=== PATIENT | male | born 2000 | race Caucasian/White ===

== ENCOUNTER 2024-11-28 20:57 | Inpatient (IN) | payer BC, SELFPAY ==
[2024-11-28] VITALS (8 sets, daily range): BP systolic 102–147; BP diastolic 73–88; BMI 23.5; BMI 20.9
[2024-11-28] MEDS: OMNIPAQUE 50 ML PO (13:58)
[2024-11-28 14:02] LABS: % Basophils 1.3 % (0-2); % Eosinophils 0.2 % (0-6); % Immature Granulocytes 2.4 % (0-0.5); % Lymphocytes 19.2 % (20.5-51.1); % Monocytes 14.2 % (1.7-9.3); % Neutrophils 62.7 % (42.2-75.2); Absolute Basophils 0.1 10^3/uL (0-0.2); Absolute Immature Granulocytes 0.1 10^3/uL (0-0.05); Absolute Lymphocytes 1.1 10^3/uL (1.2-3.4); Absolute Monocytes 0.8 10^3/uL (0.1-0.6); Absolute Neutrophils 3.7 10^3/uL (1.4-6.5); Hematocrit 35.6 % (39.0-52.0); Mean Corp Hgb Conc. 33.7 g/dL (33.0-37.0); Mean Corpuscular Hgb 31.5 pg (27.0-31.0); Mean Corpuscular Volume 93.4 fL (80.0-94.0); Mean Platelet Volume 10.9 fL (7.4-10.4); Nucleated Red Blood Cells % 2.5 % (-); Platelet Count 122 10^3/uL (130-400); Red Blood Cell Count 3.81 10^6/uL (4.70-6.10); Red Cell Dist. Width 17.3 % (11.5-14.5); White Blood Cell Count 5.9 10^3/uL (4.8-10.8)
[2024-11-28 14:09] LABS: INR 1.16; PT 15.1 Sec (11.4-14.6)
[2024-11-28 14:19] LABS: ALT (SGPT) 109 U/L (0-50); AST (SGOT) 634 U/L (17-59); Albumin 3.7 g/dl (3.5-5.0); Alkaline Phosphatase 225 U/L (38-126); Blood Urea Nitrogen 5 mg/dl (9-20); Calcium 8.3 mg/dl (8.4-10.2); Carbon Dioxide 28 mmol/L (22-30); Chloride 87 mmol/L (98-107); Glucose 116 mg/dl (70-99); Lipase 347 U/L (23-300); Potassium 2.8 mmol/L (3.5-5.1); Sodium 130 mmol/L (135-145); Total Protein 7.2 g/dl (6.3-8.2); eGFR > 60.00
--- NOTE | 2024-11-28 14:59 | ED.GENMED ---
History of Present Illness
<Tika Crotf PA-C - Last Filed: 11/28/24 18:43>
General
Chief Complaint: Abnormal Lab Value
Source: patient and family (mother at bedside)
Exam Limitations: none
Time Seen by Provider: 11/28/24 14:32
Nursing documentation reviewed up to this point in time: agreed with
History of Present Illness
History of Present Illness:
Patient is a 24 year old male presenting to the emergency department for evaluation of acute onset jaundice. Patient states about 5 days ago he noticed yellowing of his eyes and skin. He was seen by primary care physician this morning in [facility]
who referred him to the emergency department for further evaluation. Patient denies any abdominal pain although does report a 'fullness 'sensation in his upper abdomen over the past few days. Patient denies any chest pain or shortness of breath.
No fevers or chills. No urinary symptoms.
Of note�patient does report drinking about 5 drinks per day over the past year although recently tried to trim back last week. Patient states he has been dealing with a lot of anxiety over the past year and recently started new job. He does report
much lower appetite over the past few weeks which he thinks is also secondary to anxiety.
No history of liver disease. No recent travel.
Review of Systems
<Tika Croft PA-C - Last Filed: 11/28/24 18:43>
Review of Systems
Allergies reviewed?: Yes
All Other Systems: ROS reviewed and negative except as documented in HPI and ROS
Phy Exam
<Tika Croft PA-C - Last Filed: 11/28/24 18:43>
Physical Exam
Physical Exam:
Vitals: Hypertensive, otherwise vital signs stable. Afebrile
General: Patient is in no apparent distress.
Skin: Jaundice. Warm and dry, no rashes or lesions
Head: Normocephalic, atraumatic
Eyes: Scleral icterus bilaterally. EOMs intact. No nystagmus.
Throat: Protecting airway
Neck: Normal ROM, no cervical spine tenderness, no meningismus
Cardiac: Regular rate and rhythm, no murmurs.
Pulm: Normal respiratory effort, no wheezes, rales, rhonchi heard on exam.
Abdomen: Abdomen soft. Palpable hepatomegaly. Mild right upper quadrant tenderness. No rebound tenderness or guarding.
Extremities: No evidence of cyanosis or edema. Palpable distal pulses bilaterally.
Neuro: AAOx3. Grossly intact.
Psychiatric: Normal affect.
Course
<Tika Croft PA-C - Last Filed: 11/28/24 18:43>
Orders/Labs/Results
Orders:
Orders
11/28/24 13:45
Acetaminophen Urgent
Comment: ADD ON
Complete Blood Count/With Diff Urgent
Comprehensive Metabolic Panel Urgent
Direct Bilirubin Urgent
Comment: ADD ON
Lipase Urgent
Magnesium Urgent
Comment: ADD ON
Monotest Urgent
Comment: ADD ON
Prothrombin Time Urgent
11/28/24 13:55
CT Abd/pel W Iv And Oral Contr Urgent
Comment:
Reason For Exam: painless jaundice
Iohexol [Omnipaque] See Protocol PO NOW STA
11/28/24 15:00
Add On- LAB Urgent
Tests Added?: direct bili, magnesium, tylenol
0.9% Sodium Chloride 1000 ml [Nss] 1,000 ml IV BOLUS
Potassium Chloride [KCl] 40 meq PO NOW STA
11/28/24 15:14
Potassium Chloride [KCl] 40 meq 0.9% Sodium Chloride 250 ml [Nss] 250 ml IV NOW
11/28/24 15:17
EKG [Electrocardiogram (*1)] Urgent
Reason for Study: Other
Other Reason for Exam: low K
11/28/24 15:18
EKG- Treatment ONCE
11/28/24 15:33
Thiamine Injection 100 mg IV NOW STA
11/28/24 15:45
GASTROINTESTINAL CONSULT Urgent
Consulting Provider: Lokesh Villa
Was physician already notified: Yes
11/28/24 16:06
FOLic ACID [Folvite] 1 mg 0.9% Sodium Chloride 50 ml [Nss] 50 ml IV NOW
11/28/24 16:09
Hepatitis A IgM Antibody Urgent
Hepatitis B Core Ab, IgM Urgent
Hepatitis B Surface Antibody Urgent
Hepatitis B Surface Antigen Urgent
Hepatitis C Antibody Urgent
11/28/24 16:21
Magnesium Sulfate 2 Gram/50 ml [Magnesium Sulfate] 2 gram in 50 ml IV NOW
11/28/24 16:24
Add On- LAB Urgent
Tests Added?: monospot
11/28/24 17:08
Urinalysis Reflex To Culture Urgent
Date Specimen was Collected: 11/28/24
Time Specimen was Collected: 17:01
Abnormal Lab Results
11/28/24 11/28/24
13:45 17:08
RBC 3.81 L 10^6/uL
(4.70-6.10)
Hgb 12.0 L g/dL
(13.0-18.0)
Hct 35.6 L %
(39.0-52.0)
MCH 31.5 H pg
(27.0-31.0)
RDW 17.3 H %
(11.5-14.5)
Plt Count 122 L 10^3/uL
(130-400)
MPV 10.9 H fL
(7.4-10.4)
Abs Immat Gran (auto) 0.1 H 10^3/uL
(0-0.05)
Absolute Lymphs (auto) 1.1 L 10^3/uL
(1.2-3.4)
Absolute Monos (auto) 0.8 H 10^3/uL
(0.1-0.6)
Immature Gran % 2.4 H %
(0-0.5)
Lymphocytes % 19.2 L %
(20.5-51.1)
Monocytes % 14.2 H %
(1.7-9.3)
PT 15.1 H Sec
(11.4-14.6)
Sodium 130 L mmol/L
(135-145)
Potassium 2.8 L mmol/L
(3.5-5.1)
Chloride 87 L mmol/L
(98-107)
BUN 5 L mg/dl
(9-20)
Creatinine 0.6 L mg/dL
(0.7-1.3)
Glucose 116 H mg/dl
(70-99)
Calcium 8.3 L mg/dl
(8.4-10.2)
Magnesium 1.1 L mg/dl
(1.6-2.3)
Total Bilirubin 17.0 H mg/dl
(0.2-1.3)
Direct Bilirubin 14.6 H mg/dl
(0.0-0.4)
AST 634 H* U/L
(17-59)
ALT 109 H U/L
(0-50)
Alkaline Phosphatase 225 H U/L
(38-126)
Lipase 347 H U/L
(23-300)
Urine Bilirubin 3+ A
(Negative)
Urine Urobilinogen 2+ A
(Neg - 1+)
Acetaminophen < 10 L ug/ml
(10-30)
11/28/24 13:45
11/28/24 13:45
Vital Signs
Initial and Last Documented VS:
Initial Vital Signs
Temp Pulse Resp BP Pulse Ox
98.5 F 115 17 147/73 98
11/28/24 13:34 11/28/24 13:34 11/28/24 13:34 11/28/24 13:34 11/28/24 13:34
Last Documented Vital Signs
Temp Pulse Resp BP Pulse Ox
98.5 F 103 20 114/86 96
11/28/24 13:34 11/28/24 18:30 11/28/24 16:15 11/28/24 18:00 11/28/24 18:30
<Mart Joiner MD - Last Filed: 11/28/24 15:29>
Orders/Labs/Results
Orders:
Orders
11/28/24 13:45
Acetaminophen Urgent
Comment: ADD ON
Complete Blood Count/With Diff Urgent
Comprehensive Metabolic Panel Urgent
Direct Bilirubin Urgent
Comment: ADD ON
Lipase Urgent
Magnesium Urgent
Comment: ADD ON
Monotest Urgent
Comment: ADD ON
Prothrombin Time Urgent
11/28/24 13:55
CT Abd/pel W Iv And Oral Contr Urgent
Comment:
Reason For Exam: painless jaundice
Iohexol [Omnipaque] See Protocol PO NOW STA
11/28/24 15:00
Add On- LAB Urgent
Tests Added?: direct bili, magnesium, tylenol
0.9% Sodium Chloride 1000 ml [Nss] 1,000 ml IV BOLUS
Potassium Chloride [KCl] 40 meq PO NOW STA
11/28/24 15:14
Potassium Chloride [KCl] 40 meq 0.9% Sodium Chloride 250 ml [Nss] 250 ml IV NOW
11/28/24 15:17
EKG [Electrocardiogram (*1)] Urgent
Reason for Study: Other
Other Reason for Exam: low K
11/28/24 15:18
EKG- Treatment ONCE
11/28/24 15:33
Thiamine Injection 100 mg IV NOW STA
11/28/24 15:45
GASTROINTESTINAL CONSULT Urgent
Consulting Provider: Lokesh Villa
Was physician already notified: Yes
11/28/24 16:06
FOLic ACID [Folvite] 1 mg 0.9% Sodium Chloride 50 ml [Nss] 50 ml IV NOW
11/28/24 16:09
Hepatitis A IgM Antibody Urgent
Hepatitis B Core Ab, IgM Urgent
Hepatitis B Surface Antibody Urgent
Hepatitis B Surface Antigen Urgent
Hepatitis C Antibody Urgent
11/28/24 16:21
Magnesium Sulfate 2 Gram/50 ml [Magnesium Sulfate] 2 gram in 50 ml IV NOW
11/28/24 16:24
Add On- LAB Urgent
Tests Added?: monospot
11/28/24 17:08
Urinalysis Reflex To Culture Urgent
Date Specimen was Collected: 11/28/24
Time Specimen was Collected: 17:01
Abnormal Lab Results
11/28/24 11/28/24
13:45 17:08
RBC 3.81 L 10^6/uL
(4.70-6.10)
Hgb 12.0 L g/dL
(13.0-18.0)
Hct 35.6 L %
(39.0-52.0)
MCH 31.5 H pg
(27.0-31.0)
RDW 17.3 H %
(11.5-14.5)
Plt Count 122 L 10^3/uL
(130-400)
MPV 10.9 H fL
(7.4-10.4)
Abs Immat Gran (auto) 0.1 H 10^3/uL
(0-0.05)
Absolute Lymphs (auto) 1.1 L 10^3/uL
(1.2-3.4)
Absolute Monos (auto) 0.8 H 10^3/uL
(0.1-0.6)
Immature Gran % 2.4 H %
(0-0.5)
Lymphocytes % 19.2 L %
(20.5-51.1)
Monocytes % 14.2 H %
(1.7-9.3)
PT 15.1 H Sec
(11.4-14.6)
Sodium 130 L mmol/L
(135-145)
Potassium 2.8 L mmol/L
(3.5-5.1)
Chloride 87 L mmol/L
(98-107)
BUN 5 L mg/dl
(9-20)
Creatinine 0.6 L mg/dL
(0.7-1.3)
Glucose 116 H mg/dl
(70-99)
Calcium 8.3 L mg/dl
(8.4-10.2)
Magnesium 1.1 L mg/dl
(1.6-2.3)
Total Bilirubin 17.0 H mg/dl
(0.2-1.3)
Direct Bilirubin 14.6 H mg/dl
(0.0-0.4)
AST 634 H* U/L
(17-59)
ALT 109 H U/L
(0-50)
Alkaline Phosphatase 225 H U/L
(38-126)
Lipase 347 H U/L
(23-300)
Urine Bilirubin 3+ A
(Negative)
Urine Urobilinogen 2+ A
(Neg - 1+)
Acetaminophen < 10 L ug/ml
(10-30)
11/28/24 13:45
11/28/24 13:45
Vital Signs
Initial and Last Documented VS:
Initial Vital Signs
Temp Pulse Resp BP Pulse Ox
98.5 F 115 17 147/73 98
11/28/24 13:34 11/28/24 13:34 11/28/24 13:34 11/28/24 13:34 11/28/24 13:34
Last Documented Vital Signs
Temp Pulse Resp BP Pulse Ox
98.5 F 103 20 114/86 96
11/28/24 13:34 11/28/24 18:30 11/28/24 16:15 11/28/24 18:00 11/28/24 18:30
<Tika Croft PA-C - Last Filed: 11/28/24 18:43>
MDM/Problems Addressed
Differential Diagnosis Includes:
Not limited to: Acute alcoholic hepatitis, viral hepatitis, acute pancreatitis, cholangitis, choledocholithiasis, Gilbert's
MDM/Problems Addressed:
24-year-old male with acute onset jaundice and upper abdominal fullness over the past 5 days. Does report history of heavy alcohol drinking. No fevers, chills, vomiting, dysuria. Hypertensive, mildly tachycardic otherwise vital signs stable.
Patient is afebrile. Physical exam as above. Patient is notably jaundiced with bilateral scleral icterus and palpable hepatomegaly on exam. Otherwise abdomen is soft with very mild right upper quadrant tenderness. Concern for alcoholic
hepatitis. Other considerations include viral hepatitis, obstruction, etc. Labs initiated in triage significant for thrombocytopenia, hyponatremia, hypokalemia. Significant transaminitis with hyperbilirubinemia. Will add on direct bili,
magnesium, Tylenol level, mono, and hepatitis panel. Will replete potassium, give IV fluid, thiamine, folate. Will check CT abdomen and discuss with GI. Patient will require admission.
Update: Magnesium of 1.1. Will replete. Direct bilirubin of 14.6. CT abdomen with findings of hepatomegaly and diffuse fatty liver. Overall impression is likely acute alcoholic hepatitis. Patient admitted to hospital service in stable
condition. GI aware and consult placed. Case seen with attending physician
Chronic conditions affecting care:
N/A
Acute Exacerbation and/or Progression of Chronic Illness:
Acute alcoholic hepatitis
<Tika Croft PA-C - Last Filed: 11/28/24 18:43>
*Radiology
Radiology exam reviewed: radiology read reviewed
*Pulse Oximetry
Patient hypoxic: no
*EKG
Interpreted by ED Provider?: Yes
EKG Intrepretation Date: 11/28/24
Rate: tachycardiac
Rhythm: sinus
[place]: normal axis
Interval: normal QT interval
QRS Pattern: normal QRS
Ischemia: no ischemia
*Coating Machine Feeder Interpretation
Rate: Coating Machine Feeder- N/A
*Critical Care Note
Total Time (30-74mins, 75-104mins- exclusive of procedures): Not Applicable
<Tika Croft PA-C - Last Filed: 11/28/24 18:43>
Patient Management
Discussion with other providers: Hospitalist and Joint Cutter Machine (GI)
Escalation/DeEscalation of care consider admission/obs:
Admit
ED Attending Note
<Tika Croft PA-C - Last Filed: 11/28/24 18:43>
-
Portions of this chart may have been created with voice recognition software.� Occasional wrong word or��sound alike� substitutions may have occurred due to the inherent limitations of voice recognition software.
<Mart Joiner MD - Last Filed: 11/28/24 15:29>
ED Attending Note
Patient seen and examined by attending physician: Yes
ED Attending Note:
I have seen and evaluated the patient with a [id number] encounter. I have spoken to the advance practicer provider and involved in the medical history, the physical exam, medical decision making.
Evaluation and management service: agree unless noted differently below.
Results interpretation: agree unless noted differently below.
Focused HPI: 24-year-old male with no reported chronic medical issues presents to the ER with his mother for evaluation of jaundice. Patient reports that he noted jaundice about 5 days ago, apparently saw a primary doctor in [place] and was
referred to the ER for assessment; he came here because his parents live in [place]. He reports that unfortunately his drinking has become quite heavy over the past year in part due to significant anxiety. He says that he has at least 5
alcoholic beverages daily although he says over the past week he has tried to cut down on that. He says his last alcoholic drink was last night. He denies any known history of liver disease. He does not take any medications except for recently
taking multivitamins. He admits to dark urine, denies abdominal pain but says he has a fullness in the upper abdomen. He admits to poor appetite/food intake recently. He says he has some generalized muscle weakness. Denies other complaints.
Physical exam: Awake alert no distress. Tachycardic otherwise normal vitals. He has jaundice and scleral icterus. His abdomen is soft, he does have palpable hepatomegaly. Mild tenderness in the right upper abdomen. Urine at bedside dark brown.
Medical Decision Makin-year-old male presents to the ER for evaluation of new onset jaundice in the setting of recent alcohol abuse. Vitals and exam as above. Labs sent off including a CBC which does show thrombocytopenia with a platelet
count of 122. His INR is normal. His CMP shows hypokalemia, hyponatremia; T. bili 17. AST/ALT 634/109 with alk phos of 225. Lipase marginal at 347. Added Tylenol level, hepatitis panel. Check abdominal CT. Discuss with gastroenterology. Plan
for admission.
Discharge Plan
Departure
Patient Disposition: Admit
Date of Disposition: 11/28/24
Time of Disposition: 17:34
Presentation/result/management discussed w/ accepting /: Hospitalist
Discharge Problem:
Acute alcoholic hepatitis
Prescriptions:
No Action
Theragen Tablet
1 tab PO DAILY
ferrous sulfate 325 mg (65 mg iron) Tablet
325 mg PO DAILY
cholecalciferol (vitamin D3) [Vitamin D3] 25 mcg (1,000 unit) Tablet
25 mcg PO DAILY
Referrals:
Wyatt Bravo DO [Family Provider] -
Interventions
Interventions:
*Risk Screen - Suicide Last Done: 11/28/24 13:39
*General Assessment Last Done: 11/28/24 13:39
*Neglect/Abuse Screening Last Done: 11/28/24 13:39
ED- Fall Risk Assessment Last Done: 11/28/24 15:46
*ED COVID-19 Vaccine History Last Done: 11/28/24 13:39
Discharge Date and Time
Print Language: IVORIAN
[2024-11-28] MEDS: KCL 40 MEQ PO (15:15)
[2024-11-28] MEDS: KCL 270 MEQ IV (15:28)
[2024-11-28] MEDS: NSS 1000 IV (15:28)
[2024-11-28 15:49] LABS: Acetaminophen < 10 ug/ml (10-30); Direct Bilirubin 14.6 mg/dl (0.0-0.4); Magnesium 1.1 mg/dl (1.6-2.3)
[2024-11-28] MEDS: THIAMINE INJECTION 100 MG IV (15:59)
[2024-11-28] MEDS: FOLVITE 50.2 MG IV (17:03)
[2024-11-28 17:04] LABS: Hepatitis B Surface Antigen Negative (Negative)
[2024-11-28 17:17] LABS: Urine Albumin Trace (Neg - Trace); Urine Bilirubin 3+ (Negative); Urine Character Clear (Clear); Urine Color Amber; Urine Glucose Negative (Negative); Urine Ketone Negative (Negative); Urine Leukocyte Negative (Negative); Urine Nitrite Negative (Negative); Urine Occult Blood Negative (Negative); Urine Urobilinogen 2+ (Neg - 1+)
[2024-11-28 17:21] LABS: Hepatitis B Surface Antibody Negative; Hepatitis C Antibody Negative (Negative)
[2024-11-28] MEDS: MAGNESIUM SULFATE 50 IV (17:25)
[2024-11-28 18:16] LABS: Monotest Negative (Negative)
[2024-11-28 18:54] LABS: Hepatitis A IgM Antibody Negative (Negative); Hepatitis B Core Ab, IgM Negative (Negative)
--- NOTE | 2024-11-28 19:08 | HPS.HSE ---
Family Physician
-
Family Physician: Wyatt Bravo
Chief Complaint
-
Jaundice
History of Present Illness
24 year old man with acute onset jaundice. 5 days ago he noticed yellowing of his eyes and skin. He was seen by a primary care physician who referred him to the ER. Patient denies abdominal pain although does report a 'fullness 'sensation in his
upper abdomen over the past few days. He denies chest pain or shortness of breath. No fevers or chills. No urinary symptoms. He drinks 5+ drinks per day over the past year although recently tried to trim back last week. He reports much lower
appetite over the past few weeks which he thinks is also secondary to anxiety. No history of liver disease. No recent travel. Denies IVDU.
Medical History
Past Medical History
Past Medical History: Reports None
Past Surgical History: Reports None
Social History
Tobacco: Non-smoker
Alcohol: Daily
Drug: None
Family History
Family History: Not pertinent
Allergies / Home Medications
Allergies reflects when Allergies were last updated in [facility].
Home Medications with original date entered in [facility]
Allergy/Medication List:
Allergies
Allergy/AdvReac Type Severity Reaction Status Date / Time
No Known Allergies Allergy Unverified 11/28/24 13:36
Home Medications
cholecalciferol (vitamin D3) 25 mcg (1,000 unit) tablet (Vitamin D3) 25 mcg PO DAILY 11/28/24
ferrous sulfate 325 mg (65 mg iron) tablet 325 mg PO DAILY 11/28/24
therapeutic multivitamin 1 tab PO DAILY 11/28/24
Review of Systems
-
History Source: Patient
A 12 point ROS was completed and negative except as noted: Yes
Physical Exam
Vital Signs
Vital Signs
Temp Pulse Resp BP Pulse Ox
98.5 F 103 20 114/86 96
11/28/24 13:34 11/28/24 18:30 11/28/24 16:15 11/28/24 18:00 11/28/24 18:30
Physical Exam
General: Well Developed, Well Nourished, No Apparent Distress, Comfortable and Conversant
HEENT: NormoCephalic, Nose Appears Normal and Ears Appear Normal; No Anicteric, Moist mucous membranes or Moonshine Conjunctivae
Respiratory: Clear
Cardiac: S1/S2 and Regular Rhythm
GI: Soft, Non Tender and Distended
Musculoskeletal: No Clubbing, No Cyanosis and No Edema
Skin: Warm, Dry and Jaundice
Neuro: Awake, Alert, Oriented and AO x 3
Psych: Calm
Laboratory Results
-
11/28/24 13:45
11/28/24 13:45
Laboratory Results
PT 15.1 Sec (11.4-14.6) H 11/28/24 13:45
INR 1.16 11/28/24 13:45
Total Bilirubin 17.0 mg/dl (0.2-1.3) H 11/28/24 13:45
AST 634 U/L (17-59) H* 11/28/24 13:45
ALT 109 U/L (0-50) H 11/28/24 13:45
Alkaline Phosphatase 225 U/L (38-126) H 11/28/24 13:45
Lipase 347 U/L (23-300) H 11/28/24 13:45
Data Reviewed
-
Lab Data: Labs Reviewed by me
Impression/Plan
-
IMPRESSION:
24 man with probable alcoholic hepatitis / pancreatitis. No past WD seizure history.
Ca 8.3
Mag 1.1
AST/ALT 634/109
lipase 347
K 2.8
Abnormal ECG
PLAN:
1. Hepatitis, probable from alcohol
WD protocol
IV fluids
Rule out other possible concomitant causes of hepatitis
2. Pancreatitis, probable alcoholic
NPO
IV fluids
3. Abnormal ECG
Check troponin
monitor on telemetry
4. Alcoholism
Social work consult
Needs help with inpatient rehab when stable
5. Electrolyte abnormalities - from alcoholism
Replete electrolytes
Recheck in am
Replete as needed
Full Code
VCD for DVTp
--- NOTE | 2024-11-28 22:00 | PTCARENOTE ---
Received patient from ED via stretcher. Patient ambulated from stretcher to bed independently. Denies pain at this time. Oriented patient to room and placed call arceo within reach.
[2024-11-28] MEDS: LR 1000 IV (22:02)
[2024-11-28 23:08] LABS: Troponin I < 0.012 ng/ml
[2024-11-28] MEDS: THIAMINE INJECTION 200 MG IV (23:26)
[2024-11-28] MEDS: TYLENOL 650 MG PO (23:26)
--- NOTE | 2024-11-29 02:16 | DOWNTIME ---
There was a [employer] Director Downtime on 11/29/2024 from 0100 to 11/29/2023 at 0205 . Downtime documentation of patient's care, including medication administrations, has been reconciled in the electronic record per guidelines. Refer to the
patient's paper chart under the miscellaneous tab to see printed paper medication records and downtime forms.
[2024-11-29 03:00] VITALS: BP 110/74
[2024-11-29] MEDS: LR 1000 IV ×4 (03:05→19:51)
[2024-11-29 05:50] LABS: Troponin I 0.018 ng/ml
[2024-11-29 07:56] VITALS: BP 117/81
[2024-11-29] MEDS: THIAMINE INJECTION 200 MG IV ×2 (09:20→16:33)
[2024-11-29] MEDS: FOLVITE PO (09:20)
[2024-11-29] MEDS: FOLVITE 50.2 MG IV (10:02)
[2024-11-29 10:47] LABS: Hematocrit 31.7 % (39.0-52.0); Hemoglobin 10.5 g/dL (13.0-18.0); Mean Corp Hgb Conc. 33.1 g/dL (33.0-37.0); Mean Corpuscular Hgb 31.4 pg (27.0-31.0); Mean Corpuscular Volume 94.9 fL (80.0-94.0); Mean Platelet Volume 11.4 fL (7.4-10.4); Platelet Count 149 10^3/uL (130-400); Red Blood Cell Count 3.34 10^6/uL (4.70-6.10); Red Cell Dist. Width 18.6 % (11.5-14.5); Reticulocyte Count 4.3 % (0.4-2.8)
[2024-11-29 10:55] LABS: Troponin I < 0.012 ng/ml
--- NOTE | 2024-11-29 11:18 | CON.GI ---
Addendum entered and electronically signed by Lokesh Villa MD 11/29/24 17:16:
I saw and examined the patient.
The DRAWBRIDGE OPERATOR's note was reviewed and I agree with the note.
-jaundice/elevated LFT / ETOH abuse / ETOH hepatitis ( DF 26 ) . Imaging - hepatomegaly/ fatty liver
-thrombocytopenia
-hyponatremia/hypokalemia
-anxiety
plan
trend LFT/ PT/INR
ETOH withdrawal protocol as per medical team
will add chronic liver disease work up
Had a long discussion with patient/ patient's mother at bedside about future ETOH abstinence
Outpatient GI/ hepatology follow up
will follow
Original Note:
Consultation
-
Date/Time Consultation Requested: 11/28/24 1545
Date/Time Consultation Performed: 11/29/24 1120
Requesting Provider: Tika Croft PA-C
Performing Provider: GAVIN Squires, Lokesh Villa MD
Reason for Consultation: jaundice
Medical History
Chief Complaint / HPI
Chief Complaint: jaundice
History of Present Illness:
Pt is a 24yo with hx ETOH use with onset of jaundice. On admission noted with bili 17, d bili 14.6, AST 634, alt 109, alk phos 225, lipase 347, platelets 122, INR 1.16, Na 130, K 2.8, mag 1.1. CT with HM, fatty liver, mild GB wall thickening
related to inflammation from liver. No biliary dilatation. US mod HM, fatty infiltration, limited GB. hepatitis panel neg with no immunity hep B (pt was vaccinated as child) and hep A IGG pending neg mono screen and other serologies pending.
Pt admits to daily ETOH use 5 drinks of beer or bourbon daily last 2 days prior to admission. Pt denies tattoos, supplement other than MVI, OTC meds, IVDA or other toxins. Pt did see in [place] 1 visit but no work up completed and came to
for evaluation.
At this time admits to nausea and vomiting food with wt loss 15 lbs since onset of symptoms. Pt denies dysphagia, GERD, abdominal pain, diarrhea, constipation or rectal bleeding. No hx Prior EGD or colonoscopy.
Past Medical History
Past Medical History: Psychiatric (anxiety )
Past Surgical History: Other (nasal surgery )
Social History
Tobacco: Non-Smoker
Alcohol: Daily
Drug: None
Personal: Single
Living: Other (girlfriend in [place] )
Employment: Employed
Family History
Family History: Other (no family hx liver issues, hepatitis )
Allergies / Home Medications
Allergy/AdvReac Type Severity Reaction Status Date / Time
No Known Allergies Allergy Unverified 11/28/24 13:36
�Medication �Instructions �Recorded
cholecalciferol (vitamin D3) 25 25 mcg PO DAILY 11/28/24
mcg (1,000 unit) tablet (Vitamin
D3)
ferrous sulfate 325 mg (65 mg 325 mg PO DAILY 11/28/24
iron) tablet
therapeutic multivitamin 1 tab PO DAILY 11/28/24
Review of Systems
-
History Source: Patient and Family
Constitutional: Reports Fever (low grade ), Weight Loss ( 15 lbs ) and Fatigue
EENT: Reports No Symptoms
Respiratory: Reports No Symptoms
Cardiac: Reports No Symptoms
Abdomen/GI: Reports Nausea
: Reports Dark Urine
Musculoskeletal: Reports No Symptoms
Skin: Reports No Symptoms
Neurological: Reports Weakness
Endocrine: Reports No Symptoms
Hematologic/Lymphatic: Reports No Symptoms
Vital Signs
Temp Pulse Resp BP Pulse Ox
98.3 F 88 18 117/81 97
11/29/24 07:56 11/29/24 07:56 11/29/24 07:56 11/29/24 07:56 11/29/24 07:56
Physical Exam
Exam
General: Other (thin appearing)
HEENT: Normocephalic and Other (jaundice )
Respiratory: Clear
Cardiac: Regular Rhythm and Other (tachy with activity )
GI: Soft, Non Tender and Non Distended
Musculoskeletal: No Clubbing and No Cyanosis
Skin: Warm and Dry
Neuro: Awake, Alert and AO x 3
Psych: Calm and Other (some slight anxiety with need for admission)
Results
WBC 5.0 10^3/uL (4.8-10.8) 11/29/24 10:12
Hgb 10.5 g/dL (13.0-18.0) L 11/29/24 10:12
Hct 31.7 % (39.0-52.0) L 11/29/24 10:12
MCV 94.9 fL (80.0-94.0) H 11/29/24 10:12
Plt Count 149 10^3/uL (130-400) D 11/29/24 10:12
Absolute Neuts (auto) 3.7 10^3/uL (1.4-6.5) 11/28/24 13:45
PT 15.1 Sec (11.4-14.6) H 11/28/24 13:45
INR 1.16 11/28/24 13:45
Sodium 130 mmol/L (135-145) L 11/28/24 13:45
Potassium 2.8 mmol/L (3.5-5.1) L 11/28/24 13:45
Chloride 87 mmol/L (98-107) L 11/28/24 13:45
Carbon Dioxide 28 mmol/L (22-30) 11/28/24 13:45
BUN 5 mg/dl (9-20) L 11/28/24 13:45
Creatinine 0.6 mg/dL (0.7-1.3) L 11/28/24 13:45
Calcium 8.3 mg/dl (8.4-10.2) L 11/28/24 13:45
Total Bilirubin 17.0 mg/dl (0.2-1.3) H 11/28/24 13:45
AST 634 U/L (17-59) H* 11/28/24 13:45
ALT 109 U/L (0-50) H 11/28/24 13:45
Alkaline Phosphatase 225 U/L (38-126) H 11/28/24 13:45
Lipase 347 U/L (23-300) H 11/28/24 13:45
Hepatitis A IgM Ab Negative (Negative) 11/28/24 16:09
Hep Bs Antibody Negative 11/28/24 16:09
Hep B Core IgM Ab Negative (Negative) 11/28/24 16:09
Hepatitis C Antibody Negative (Negative) 11/28/24 16:09
Diagnostic Image Results:
11/28/24 CT Abd/pel W Iv And Oral Contr
Marked hepatomegaly with marked diffuse fatty liver. Cannot exclude some minimal perihepatic stranding such as viral hepatitis.
Possible mild gallbladder wall thickening which may be related to hepatic inflammation. Cannot exclude cholelithiasis. No findings to suggest biliary tract dilatation. Consider Abdominal Ultrasound for more complete evaluation.
11/29/24 US abdomen
Moderate hepatomegaly. Stable
Hepatic fatty infiltration. Stable
Limited evaluation of the gallbladder due to poor distention.
Prior GI Procedures:
EGD: none
Colonoscopy: none
Assessment / Plan
-
Pt is a 24yo with hx ETOH use with onset of jaundice. On admission noted with bili 17, d bili 14.6, AST 634, alt 109, alk phos 225, lipase 347, platelets 122, INR 1.16, Na 130, K 2.8, mag 1.1. CT with HM, fatty liver, mild GB wall thickening
related to inflammation from liver. No biliary dilatation. US mod HM, fatty infiltration, limited GB. hepatitis panel neg with no immunity hep B and hep A IGG pending (pt was vaccinated as child) neg mono screen and other serologies pending. Pt
admits to daily ETOH use 5 drinks of beer or bourbon daily last 2 days prior to admission. Pt denies tattoos, supplement other than MVI, OTC meds, IVDA or other toxins. Pt did see in [place] 1 visit but no work up completed and came to for
evaluation.
-new onset of jaundice/elevated LFT's with concern for ETOH hepatitis
-Etoh abuse
-thrombocytopenia- improving
-hyponatremia/hypokalemia on admission
-imaging with HM/fatty liver, mild GB thickening with inflammation from liver
-anxiety
PLAN:
etiology of symptoms related to ETOH hepatitis -- serology pending to exclude other etiology-
hepatitis panel neg with no immunity to hep B, await hep A IGG, iron studies stable, Tylenol <10 AMINA, AMA, actin, add LKM, ceruloplasmin, A1AT
11/28 DF 24 with control of 13 -- no rule for steroids -- will repeat INR today and recalculate
will check blood cx with low grade temp and check for any infection if steroid needed next few days
stressed need to avoid all ETOH and hepatotoxic medication
monitor for withdrawal
US and CT reviewed
reviewed with patient and mother advance diet as tolerated-- pt was told NPO for 3 day but reviewed imaging and stable to proceed with diet as tolerated with supplement-- need good nutrition as tolerated
cont to correct K per medical team
will need hep B revaccination and await need for hep A vaccine
pt and family working on ETOH rehab beyond admission
-
-
-
Thank you for consultation and allowing me to participate in the patient's care. Please call the electronic maintenance supervisor GI physician during the after hours with any questions or concerns.
[2024-11-29 11:32] VITALS: BP 117/82
[2024-11-29 11:48] LABS: ALT (SGPT) 89 U/L (0-50); AST (SGOT) 446 U/L (17-59); Alkaline Phosphatase 192 U/L (38-126); Blood Urea Nitrogen 5 mg/dl (9-20); Calcium 7.4 mg/dl (8.4-10.2); Carbon Dioxide 29 mmol/L (22-30); Chloride 99 mmol/L (98-107); Estimated Creatinine Clearance > 125 ml/min; Glucose 86 mg/dl (70-99); HDL Cholesterol 36 mg/dl; Iron 146 ug/dl (49-181); Lipase 273 U/L (23-300); Magnesium 1.7 mg/dl (1.6-2.3); Sodium 137 mmol/L (135-145); Total Bilirubin 14.6 mg/dl (0.2-1.3); Total Cholesterol 295 mg/dl (50-199); eGFR > 60.00
[2024-11-29 11:52] LABS: Triglyceride 434 mg/dl (10-149)
[2024-11-29 11:57] LABS: Percent Saturation 99 % (20-50); Total Iron Binding Capacity 147 ug/dl (261-462)
[2024-11-29 12:10] LABS: TSH 1.45 uIU/ml (0.47-4.68)
[2024-11-29 13:03] LABS: INR 1.12; PT 14.7 Sec (11.4-14.6)
[2024-11-29 13:45] LABS: LDL Cholesterol, Direct 115 mg/dl
[2024-11-29] MEDS: KCL 270 MEQ IV (14:44)
[2024-11-29] MEDS: KCL 40 MEQ PO (14:59)
--- NOTE | 2024-11-29 15:04 | W.PN.HOSP.TC ---
Today's Communication/Plan
-
replete K
cont IVF
watch for DTs
Assessment / Plan
Assessment / Plan
pt is a 24 year old male
alcoholic hepatitis -- maybe mild pancreatitis but certainly not significant--agree he can eat--apprec GI--no need for steroids at this time--no cirrhosis on US
alcohol dependence with impending withdrawal--drinks 5 drinks/day--beer and liquor--last drink Monday 11/27--cont MSAS with ativan--would hold on phenobarb given elevated liver enzymes--will eventually need inpt rehab--cont thiamine and folic
hypokalemia--replete
DVT proph
code status--FULL CODE
Anticipated Discharge: > 48 hours
Subjective/Interval History
-
Date of Service: November 29, 2024
pt without c/o--states starting to get tremulous
Objective Data
-
Labs:
Laboratory Results
11/29/24 11/29/24
10:12 12:30
WBC 5.0
Hgb 10.5 L
Hct 31.7 L
Plt Count 149 D
PT 14.7 H
INR 1.12
Sodium 137
Potassium 3.0 L
Chloride 99
Carbon Dioxide 29
BUN 5 L
Creatinine 0.4 L
Glucose 86
Calcium 7.4 L
Total Bilirubin 14.6 H
AST 446 H
ALT 89 H
Alkaline Phosphatase 192 H
Vital Signs:
max temp for 24 hours
11/28/24
23:00
Temp 100.5 F H
Vital Signs
Temp Pulse Resp BP Pulse Ox
98.1 F 90 18 117/82 98
11/29/24 11:32 11/29/24 11:32 11/29/24 11:32 11/29/24 11:32 11/29/24 11:32
I&O
11/28/24 11/29/24 11/30/24
06:59 06:59 06:59
Intake Total 0 / 0
Balance 0 / 0
Review of Systems
-
All other systems: Reviewed and negative
Physical Exam
-
General: Well Developed, Well Nourished and No Apparent Distress
HEENT: Normocephalic and Atraumatic; Negative Anicteric
Respiratory: Clear to Auscultation; Negative Wheezes or Rhonchi
Cardiac: Regular Rhythm and S1/S2; Negative Murmur
GI: Soft, Nontender, Nondistended, Normal Bowel Sounds and Organomegaly (hepatomegaly)
Musculoskeletal: No Clubbing, No Cyanosis and No Edema
Skin: Warm and Jaundice
Neuro: Awake and Alert
Psych: Calm
--- NOTE | 2024-11-29 15:14 | CM ---
Patient and mother seen at bedside. Patient currently living with his parents in the area but has a job in [place] where he had been living. Patient has seen by [facility] x2 and they are working with him on placement for alcohol treatment. Patient and
mother expressed interest in [facility]. Patient PCP is Dr. Bravo and [facility] uses the [facility] [address] in [place]. CM will continue to follow for discharge planning needs.
Plan; alcohol treatment with [facility] working with family.
[2024-11-29 16:06] VITALS: BP 124/79
[2024-11-29 16:36] VITALS: BMI 20.9
[2024-11-29 19:55] VITALS: BP 118/84
[2024-11-29 23:55] VITALS: BP 119/83
[2024-11-30] MEDS: THIAMINE INJECTION 200 MG IV ×4 (00:10→23:29)
[2024-11-30] MEDS: LR 1000 IV ×2 (00:53→05:55)
[2024-11-30] MEDS: MELATONIN 5 MG PO ×2 (01:54→21:28)
[2024-11-30 03:33] VITALS: BP 118/84
[2024-11-30 07:28] LABS: INR 1.06; PT 14.1 Sec (11.4-14.6)
[2024-11-30 07:35] VITALS: BP 120/84
[2024-11-30 08:07] LABS: Hematocrit 31.9 % (39.0-52.0); Hemoglobin 10.6 g/dL (13.0-18.0); Mean Corp Hgb Conc. 33.2 g/dL (33.0-37.0); Mean Corpuscular Hgb 32.1 pg (27.0-31.0); Mean Corpuscular Volume 96.7 fL (80.0-94.0); Mean Platelet Volume 11.4 fL (7.4-10.4); Platelet Count 160 10^3/uL (130-400); White Blood Cell Count 5.7 10^3/uL (4.8-10.8)
--- NOTE | 2024-11-30 08:09 | W.PN.HOSP.TC ---
Today's Communication/Plan
-
see plan
Assessment / Plan
Assessment / Plan
Gen: NAD, AAOx3.
Eyes: EOMI, PERRLA, severe scleral icterus.
Neck: supple.
CV: RRR, +S1/S2, no m/r/g.
Resp: CTAB, no rales, wheezes, or rhonchi.
Abd: +BS, soft, NT, ND, + hepatomegaly
Skin: No rashes. + Jaundice
Neuro: CN 2-12 intact, non-focal.
Psych: Normal mood and affect.
CT A/P: Marked hepatomegaly with marked diffuse fatty liver. Cannot exclude some minimal perihepatic stranding such as viral hepatitis. Possible mild gallbladder wall thickening which may be related to hepatic inflammation. Cannot exclude
cholelithiasis. No findings to suggest biliary tract dilatation. Consider Abdominal Ultrasound for more complete evaluation.
Abd U/S: Moderate hepatomegaly. Hepatic fatty infiltration. Limited evaluation of the gallbladder due to poor distention.
Acute alcoholic hepatitis, chronic alcohol abuse disorder:
-cont MSAS protocol (thiamine/folate/Ativan PRN)
-imaging above
-trend LFTs (will likely takes weeks to improve)
-INR 1.06
-GI Following, no steroids needed at this time based on Maddrey's Discriminant Function
Other problems:
Hypokalemia, resolved
Thrombocytopenia, resolved
Hyponatremia, improved
I had an extensive discussion with the patient and his mother regarding his current disease process and what to expect. I acknowledge the patient's mild tremor. I also acknowledge the patient's visual hallucinations which she describes as seeing
things on the TV that may not be there. I explained that he currently has a normal thought process and is not hemodynamically unstable. He does not have delirium tremens at this time and I doubt he will develop delirium tremens. I explained that
if he does not commit to complete alcohol cessation that he will likely not survive to see his [age] birthday. The plan is for the patient to go to inpatient rehab at [facility].
FULL/Lovenox
Total time spent on today's encounter was 50 minutes which included time spent in counseling the patient/family regarding diagnosis and treatment plan as listed above, goals of care, and symptom management. Case was discussed with nursing staff,
specialists, and care coordinators/case management. All labs and imaging personally reviewed by me. Remainder the time spent in detailed review of previous records, lab data, imaging, and other medical provider documentation.
Anticipated Discharge: 24 - 48 hours
Subjective/Interval History
-
Date of Service: November 30, 2024
Patient denies diaphoresis. Reports some mild tremor. Also reports visual hallucinations. No other acute complaints.
Objective Data
-
Labs:
Laboratory Results
11/30/24 11/30/24
06:54 07:15
WBC 5.7
Hgb 10.6 L
Hct 31.9 L
Plt Count 160
PT 14.1
INR 1.06
Sodium Pending
Potassium Pending
Chloride Pending
Carbon Dioxide Pending
BUN Pending
Creatinine Pending
Glucose Pending
Calcium Pending
Total Bilirubin Pending
AST Pending
ALT Pending
Alkaline Phosphatase Pending
Vital Signs:
Vital Signs
Temp Pulse Resp BP Pulse Ox
99.3 F 90 16 118/84 98
11/30/24 03:33 11/30/24 03:33 11/30/24 03:33 11/30/24 03:33 11/30/24 03:33
I&O
11/29/24 11/30/24 12/01/24
06:59 06:59 06:59
Intake Total 0 / 0 2930 / 2930
Balance 0 / 0 2930 / 2930
[2024-11-30 08:25] LABS: ALT (SGPT) 77 U/L (0-50); AST (SGOT) 324 U/L (17-59); Alkaline Phosphatase 188 U/L (38-126); Blood Urea Nitrogen 3 mg/dl (9-20); Calcium 7.8 mg/dl (8.4-10.2); Carbon Dioxide 25 mmol/L (22-30); Chloride 98 mmol/L (98-107); Estimated Creatinine Clearance > 125 ml/min; Glucose 85 mg/dl (70-99); Potassium 3.5 mmol/L (3.5-5.1); Sodium 134 mmol/L (135-145); Total Bilirubin 14.5 mg/dl (0.2-1.3); Total Protein 6.1 g/dl (6.3-8.2); eGFR > 60.00
[2024-11-30] MEDS: FOLVITE 1 MG PO (09:42)
[2024-11-30 11:19] VITALS: BP 120/82
[2024-11-30] MEDS: KCL 40 MEQ PO (11:21)
--- NOTE | 2024-11-30 11:32 | W.PN.GI.CBS2 ---
Today's Communication / Plan
-
Outpatient GI follow-up
Assessment / Plan
-
Pt is a 24yo with hx ETOH use with onset of jaundice. On admission noted with bili 17, d bili 14.6, AST 634, alt 109, alk phos 225, lipase 347, platelets 122, INR 1.16, Na 130, K 2.8, mag 1.1. CT with HM, fatty liver, mild GB wall thickening
related to inflammation from liver. No biliary dilatation. US mod HM, fatty infiltration, limited GB. hepatitis panel neg with no immunity hep B and hep A IGG pending (pt was vaccinated as child) neg mono screen and other serologies pending. Pt
admits to daily ETOH use 5 drinks of beer or bourbon daily last 2 days prior to admission. Pt denies tattoos, supplement other than MVI, OTC meds, IVDA or other toxins. Pt did see in [place] 1 visit but no work up completed and came to for
evaluation.
-jaundice/elevated LFT / ETOH abuse / ETOH hepatitis ( DF 19 -11/30 ) . Imaging - hepatomegaly/ fatty liver
-thrombocytopenia
-hyponatremia/hypokalemia
-anxiety
plan
Repeat liver test/INR this a.m. stable. No role of steroids
trend LFT/ PT/INR
ETOH withdrawal protocol as per medical team
chronic liver disease work up ordered . Acute hepatitis panel negative. . Autoimmune markers pending. Ferritin was 6030/ Percentage saturation 99- can be secondary to ETOH abuse. Will need repeat serum ferritin/HFE gene testing as outpatient
Had a long discussion with patient/ patient's mother at bedside about future ETOH abstinence. They are interested in inpatient alcohol rehab
Outpatient GI/ hepatology follow up . message sent to office
No further recommendation. Will sign off. Please call us back if any questions
-
Total Time Spent with Patient (in minutes): 35
Subjective
Subjective
Date of Service: November 30, 2024
Having mild tremor/visual hallucination
Objective
Data Reviewed
Laboratory Data:
Laboratory Results
11/30/24 07:15
11/30/24 07:15
Laboratory Results
PT 14.1 Sec (11.4-14.6) 11/30/24 06:54
INR 1.06 11/30/24 06:54
Magnesium 1.7 mg/dl (1.6-2.3) 11/29/24 10:12
Total Bilirubin 14.5 mg/dl (0.2-1.3) H 11/30/24 07:15
AST 324 U/L (17-59) H 11/30/24 07:15
ALT 77 U/L (0-50) H 11/30/24 07:15
Alkaline Phosphatase 188 U/L (38-126) H 11/30/24 07:15
Lipase 273 U/L (23-300) 11/29/24 10:12
Vital Signs and I&O:
Vital Signs
Temp Pulse Resp BP Pulse Ox
98.8 F 91 18 120/82 96
11/30/24 11:19 11/30/24 11:19 11/30/24 11:19 11/30/24 11:19 11/30/24 11:19
I&O
11/29/24 11/30/24 12/01/24
06:59 06:59 06:59
Intake Total 0 / 0 2930 / 2930
Balance 0 / 0 2930 / 2930
Physical Exam
Physical Exam
HEENT: Other (icterus )
GI: Soft, Non Distended and Non Tender
Neuro: Other (AAO x 3)
[2024-11-30 15:37] VITALS: BP 114/79
[2024-11-30] MEDS: LOVENOX 40 MG SC (17:13)
[2024-11-30 19:26] LABS: Hepatitis A Antibody, Total Positive (Negative); Hepatitis B Core Ab, Total Negative (Negative)
[2024-11-30 19:37] VITALS: BP 117/80
[2024-11-30 23:16] VITALS: BP 116/78
[2024-12-01 01:41] LABS: ANA, IgG Reflex to HEp-2 None Detected (None Detected)
[2024-12-01 02:14] LABS: F-Actin Antibody IgG 5 Units (0-19); Mitochondrial M2 Ab, IgG 3.7 Units (0.0-24.9)
[2024-12-01 03:35] VITALS: BP 113/82
[2024-12-01 06:42] LABS: Hematocrit 32.7 % (39.0-52.0); Hemoglobin 11.1 g/dL (13.0-18.0); Mean Corp Hgb Conc. 33.9 g/dL (33.0-37.0); Mean Corpuscular Hgb 32.2 pg (27.0-31.0); Mean Corpuscular Volume 94.8 fL (80.0-94.0); Mean Platelet Volume 11.2 fL (7.4-10.4); Platelet Count 188 10^3/uL (130-400); Red Blood Cell Count 3.45 10^6/uL (4.70-6.10); Red Cell Dist. Width 19.1 % (11.5-14.5); White Blood Cell Count 5.7 10^3/uL (4.8-10.8)
[2024-12-01 06:49] LABS: INR 1.05
[2024-12-01 07:12] LABS: ALT (SGPT) 69 U/L (0-50); AST (SGOT) 255 U/L (17-59); Albumin 3.1 g/dl (3.5-5.0); Alkaline Phosphatase 187 U/L (38-126); Blood Urea Nitrogen 4 mg/dl (9-20); Calcium 8.1 mg/dl (8.4-10.2); Carbon Dioxide 25 mmol/L (22-30); Chloride 97 mmol/L (98-107); Estimated Creatinine Clearance > 125 ml/min; Glucose 92 mg/dl (70-99); Potassium 3.9 mmol/L (3.5-5.1); Sodium 132 mmol/L (135-145); Total Bilirubin 14.8 mg/dl (0.2-1.3); Total Protein 6.4 g/dl (6.3-8.2); eGFR > 60.00
[2024-12-01] MEDS: FOLVITE 1 MG PO (08:33)
[2024-12-01] MEDS: THIAMINE INJECTION 200 MG IV (08:33)
[2024-12-01 08:42] VITALS: BP 130/89
--- NOTE | 2024-12-01 09:27 | W.PN.HOSP.TC ---
Today's Communication/Plan
-
d/c
Assessment / Plan
Assessment / Plan
Gen: NAD, AAOx3.
Eyes: EOMI, PERRLA, severe scleral icterus.
Neck: supple.
CV: remains RRR, +S1/S2, no m/r/g.
Resp: remains CTAB, no rales, wheezes, or rhonchi.
Abd: remains +BS, soft, NT, ND, + hepatomegaly
Skin: No rashes. + Jaundice
Neuro: CN 2-12 intact, non-focal.
Psych: Normal mood and affect.
CT A/P: Marked hepatomegaly with marked diffuse fatty liver. Cannot exclude some minimal perihepatic stranding such as viral hepatitis. Possible mild gallbladder wall thickening which may be related to hepatic inflammation. Cannot exclude
cholelithiasis. No findings to suggest biliary tract dilatation. Consider Abdominal Ultrasound for more complete evaluation.
Abd U/S: Moderate hepatomegaly. Hepatic fatty infiltration. Limited evaluation of the gallbladder due to poor distention.
Acute alcoholic hepatitis, chronic alcohol abuse disorder:
-was on MSAS protocol (thiamine/folate/Ativan PRN), d/c on PO thiamine/folate
-imaging above
-trend LFTs (will likely takes weeks to improve)
-INR 1.05
-GI Following, no steroids needed at this time based on Maddrey's Discriminant Function
Other problems:
Hypokalemia, resolved
Thrombocytopenia, resolved
Hyponatremia, mild
FULL/Lovenox
Patient's mother and sister updated at bedside. Patient's father updated over speaker phone at bedside.
Medically cleared for discharge.
Total time spent on d/c = 35 min. This included today's physical exam, progress note, review of laboratory and diagnostic data, preparation of discharge documents and prescriptions, and discussions about the pt's hospital course and discharge plan
with the patient and other medical writer involved in the patient's care.
Anticipated Discharge: Today
Subjective/Interval History
-
Date of Service: December 01, 2024
No new complaints.
Objective Data
-
Labs:
Laboratory Results
12/01/24
06:18
WBC 5.7
Hgb 11.1 L
Hct 32.7 L
Plt Count 188
PT 14.0
INR 1.05
Sodium 132 L
Potassium 3.9
Chloride 97 L
Carbon Dioxide 25
BUN 4 L
Creatinine 0.4 L
Glucose 92
Calcium 8.1 L
Total Bilirubin 14.8 H
AST 255 H
ALT 69 H
Alkaline Phosphatase 187 H
Vital Signs:
Vital Signs
Temp Pulse Resp BP Pulse Ox
98.6 F 94 20 130/89 97
12/01/24 08:42 12/01/24 08:42 12/01/24 08:42 12/01/24 08:42 12/01/24 08:42
I&O
11/30/24 12/01/24 12/02/24
06:59 06:59 06:59
Intake Total 2930 / 2930 1440 / 1440
Balance 2930 / 2930 1440 / 1440
--- NOTE | 2024-12-01 10:21 | CM ---
Patient seen bedside with mother.
Per Last from [facility] patient accepted for ETOH rehab at [facility].
Bed available today.
Per MD stable for d/c.
Parents will transport.
Mother spoke with Last from [facility] and this am.
Plan: ETOH rehab today at [facility].
[2024-12-01 11:44] VITALS: BP 120/81
[2024-12-01 19:01] LABS: Alpha-1-Antitrypsin 251 mg/dL (90-200); Ceruloplasmin 37 mg/dL (15-30)
[2024-12-01 19:24] LABS: LKM-1 Ab (IgG) 0.7 U (0.0-24.9)
--- NOTE | 2024-12-02 16:47 | W.DCSUMMARY ---
Discharge Summary
Discharge Data
Date of Admission: 11/28/24
Date of Discharge: 12/01/24
-
Pending Results: No
Hospital Course
Primary diagnoses:
Acute alcoholic hepatitis
Chronic alcohol abuse disorder
Secondary diagnoses:
Hypokalemia
Thrombocytopenia
Hyponatremia
Consultants:
Gastroenterology
Imaging:
CT A/P: Marked hepatomegaly with marked diffuse fatty liver. Cannot exclude some minimal perihepatic stranding such as viral hepatitis. Possible mild gallbladder wall thickening which may be related to hepatic inflammation. Cannot exclude
cholelithiasis. No findings to suggest biliary tract dilatation. Consider Abdominal Ultrasound for more complete evaluation.
Abd U/S: Moderate hepatomegaly. Hepatic fatty infiltration. Limited evaluation of the gallbladder due to poor distention.
Hospital course: 24-year-old male who presented with a chief complaint of jaundice as outlined in the H&P done on admission. Patient had a history of chronic alcohol abuse disorder. He had acute alcoholic hepatitis on admission. Total bilirubin
17.0, direct bilirubin 14.6, AST 634, ALT 109, alk phos 225. Imaging above. The patient was placed on the MSAS protocol (thiamine/folate/Ativan PRN). His liver function tests improved by a small margin while hospitalized. He was treated
supportively. INR was unremarkable at 1.05. The patient was seen in consultation by gastroenterology. No steroids were needed as the patient's Maddrey's Discriminant Function was < 32. The patient was discharged in medically stable condition to
inpatient alcohol rehab.
Discharge Plan
-
Patient Disposition: Home (Routine Discharge)
Discharge Diagnosis/Procedures: Acute alcoholic hepatitis, Chronic alcohol abuse disorder
Condition: Good
Diet: No restrictions
Activity: As tolerated
Driving Restrictions: Not until seen by your Dr
Specialty Instructions: Weigh Daily- Call MD for wt gain/loss 3 lbs overnight/5 lbs in 1 week
Referrals:
Wyatt Bravo DO [Family Provider] - in less than 1 week
Prescriptions:
New
folic acid 1 mg Tablet
1 mg PO DAILY Qty: 0 0RF
thiamine mononitrate (vit B1) 100 mg Tablet
100 mg PO BID Qty: 0 0RF
Continued
therapeutic multivitamin Tablet
1 tab PO DAILY
ferrous sulfate 325 mg (65 mg iron) Tablet
325 mg PO DAILY
cholecalciferol (vitamin D3) [Vitamin D3] 25 mcg (1,000 unit) Tablet
25 mcg PO DAILY
Discharge Orders:
Discharge Patient (As Directed); Ordered 12/01/24
Ordered By: Piotr Boyd
Discharge Date and Time
Discharge Date/Time: 12/01/24 13:30
Print Language: KAZAKH
== END 2024-12-01 13:30 | disposition other institution (70) | DRG 433 ==
LOC: 4 EAST ACU 20:57
PROVIDERS: Emergency Medicine; Nurse Practitioner Adult Health; Physician Assistant; ADMITTING PHYSICIAN Internal Medicine; ATTENDING PHYSICIAN Internal Medicine; CONSULT PHYSICIAN Internal Medicine Gastroenterology; EMERGENCY PHYSICIAN Emergency Medicine; FAMILY PHYSICIAN Internal Medicine
DX: K70.10 Alcoholic hepatitis without ascites (principal); E87.1 Hypo-osmolality and hyponatremia; F41.9 Anxiety disorder, unspecified; F10.20 Alcohol dependence, uncomplicated; E87.6 Hypokalemia; D69.6 Thrombocytopenia, unspecified; K76.0 Fatty (change of) liver, not elsewhere classified
CPT/HCPCS: 74177; 76700; 80053; 80061; 80143; 81003; 82103; 82248; 82390; 82728; 83540; 83550; 83690; 83721; 83735; 84443; 84484; 85025; 85027; 85045; 85610; 86015; 86038; 86308; 86376; 86381; 86704; 86705; 86706; 86708; 86709; 86803; 87040; 87340; 93005; 96361; 96374; 96375; 99285; Q9967